=== PATIENT | female | born 1960 | race Caucasian/White ===

== ENCOUNTER → 2016-11-16 | Outpatient (CLI) | payer BC ==
[~2016-11-16] MED LIST: ALLERGY REL5 MG/5 ML PO; ASPIRIN E.C. 8181 MG PO; CRANBERRY FRUI425 MG PO; ESTRACE0.1 MG/GM VG; FIORICET 325 MG1 TA1 PO; FISH OIL SUPER1 SGL PO; IMITREX50 MG PO; MULTI VITAMINS1 TAB PO; NASONEX SPRAY17 GM NS; NORCO 325 MG-51 TAB PO; PHARMASSURE CHE30 MG PO
== END ==
LOC: MC.RAD 14:33
DX: Z12.31 Encounter for screening mammogram for malignant neoplasm of breast (principal)

== ENCOUNTER 2021-01-16 15:48 | Inpatient (IN) | payer BC ==
[~2021-01-16] VITALS: Ht 167.6 cm; Wt 56.4 kg
[2021-01-27] VITALS (12 sets, daily range): BP systolic 108–142; BP diastolic 64–81; PULSE 60–81; TEMP 97.7–98.7
[2021-01-27] MEDS ORDERED: CLARITIN 1010 MG/TAB PO (09:01)
[2021-01-27] MEDS ORDERED: FLONASEALLERGY NS (09:01)
--- NOTE | 2021-01-27 10:13 | NUR ---
Patient's pre-op PO celebrex is not given due to cross-allergy flagged to her bactrim drug allergy, to which her reaction is anaphylaxis.
[2021-01-27] MEDS ORDERED: CRANBERRY FRUI425 MG PO (15:26)
[2021-01-27] MEDS ORDERED: COMPLETE MULTI1 TAB PO (15:26)
[2021-01-27] MEDS ORDERED: OMEGA-3 1000 MG1 CAP PO (15:26)
[2021-01-27] MEDS ORDERED: GLUCOSAMIN 500 PO (15:27)
[2021-01-27] MEDS ORDERED: TUMERIC PO (15:27)
--- NOTE | 2021-01-27 19:22 | NUR ---
PT WAS GIVEN DILAUDID 0.25MG IVP FOR BACK PAIN. IVF TO LEFT FOREARM INFUSING WITHOUT REDNESS OR SWELLING.
--- NOTE | 2021-01-27 20:12 | NUR ---
Patient resting in bed. We attempted PO tyelnol & motrin for pain, but patient did not tolerate. She become quite nauseated. Zofran was given. Patient reports pain to her back like she is "having a baby". Dilaudid given after no relief with po medication. Kpad provided for comfort as well. She has had minimal PO intake. Ivf per orders. Patient was up to bedside commode & voided. She was unable to ambulate to the bathroom due to dizzyness & nausea. Patient provided with cool washcloth. Ice chips provided. Scds Ble. Bedside report to bob
--- NOTE | 2021-01-27 21:49 | NUR ---
PT IN BED, NEEDS TO USE THE BATHROOM. DILAUDID 0.25MG IVP FOR BACK AND ABD PAIN. ASSISTED TO BATHROOM, STEADY GAIT, VOIDS AND BACK TO BED. HAS NOT PASSED GAS. ABD WITH LAP SITES X4. REPORTS PERSISTENT NAUSEA. IS ALERT AND ORIENTED X4.
--- NOTE | 2021-01-27 22:45 | NUR ---
PT AMBULATES IN HALLWAY, GAIT SLOW AND STEADY. STILL HAVING LEFT BACK DISCOMFORT AND NAUSEA.
--- NOTE | 2021-01-27 23:06 | NUR ---
MEDICATED WITH PHENERGAN 12.5MG IVPB FOR NAUSEA.
[2021-01-28 03:24] VITALS: BP 116/57; PULSE 78; TEMP 98.7
--- NOTE | 2021-01-28 03:30 | NUR ---
PT AWAKE. REPORTS NAUSEA HAS SUBSIDED AND BACK PAIN IS GONE. REPORTS PAIN TO ABD. HAS KPAD ON. GIVEN SCHEDULED ES TYLENOL 1000MG AT THIS TIME. HAS TAKEN SALTINES WITHOUT PROBLEM, DIET INCREASED TO FULL LIQUID.
--- NOTE | 2021-01-28 06:36 | NUR ---
DIET INCREASED TO SOFT. PT FEELING BETTER, IVF CAPPED.
[2021-01-28 06:57] LABS: BASO % 0.2 % (0.0-2.0); GRAN # 8.3 (1.4-6.5); GRAN % 78.3 % (42.2-75.2); HEMOGLOBIN 11.7 g/dl (12.5-16.0); LYMPH # 1.3 (1.2-3.4); LYMPH % 12.7 % (20.0-51.0); MEAN CELL VOLUME 86 fl (80.0-100.0); MEAN CORPUSCULAR HEMOGLOBIN 30 pg (27.0-31.0); MEAN CORPUSCULAR HGB CONC 35 g/dl (33.0-37.0); MEAN PLATELET VOLUME 9.4 fl (7.4-10.4); MONO # 0.9 (0.1-0.6); MONO % 8.3 % (1.7-9.3); PLATELET COUNT 244 K/mm3 (130-400); RED BLOOD COUNT 3.96 M/mm3 (4.10-5.30); REDCELL DISTRIBUTION WIDTH-CV 12.2 % (11.5-14.5)
[2021-01-28 06:58] LABS: HEMATOCRIT 33.9 % (37.0-47.0)
[2021-01-28 07:01] LABS: CALCIUM 8.6 mg/dL (8.4-10.2); CREATININE, serum 0.77 (0.52-1.25); POTASSIUM 3.8 mmol/L (3.4-5.0)
[2021-01-28 07:45] VITALS: BP 128/72; PULSE 80; TEMP 98.1
--- NOTE | 2021-01-28 09:40 | NUR ---
Patient has been ambulating the halls independently. Steady on her feet. Independent in room. She tolerated breakfast without nausea. Abdomen flat & soft. Denies yet passing flatus or having BM. lap sites edges well approximated.
[2021-01-28 11:52] VITALS: BP 127/80; PULSE 94; TEMP 99
[2021-01-28] MEDS ORDERED: TYLENOL 500MG500 MG PO (12:13)
[2021-01-28] MEDS ORDERED: ROXICODONE 55 MG/TAB PO (12:14)
--- NOTE | 2021-01-28 13:42 | NUR ---
rounded. Discharge orders obtained. Patient anxiously awaiting discharge. Patient denies yet passing flatus or Bm, but still wanting to get home. Patient tolerated lunch, but did not like the food. We reviewed home med list. Tylenol given prior to discharge for pain. Patient going to stop at pharmacy to get tylenol on the way home. I reviewed diet restrictions & activity restrictions with patient. Patient ambulated out with all belongings. Her spouse taking her home.
--- NOTE | 2021-01-28 16:05 | NUR ---
Patient reports that he will DC home to [place]. Patient report that her PCP is in [place] and she uses [facility] for medications. Patient reports that she has transportation. Denies any concern with obtaining medications. Denies any DME. NF.
== END 2021-01-28 13:50 | disposition home or self-care (01) | DRG 331 ==
LOC: INPTSU 01-27 08:35 → SURG 01-27 10:30
PROVIDERS: ADMIT Surgery
PROC: 8E0W4CZ Robotic Assisted Procedure of Trunk Region, Percutaneous Endoscopic Approach (ICD-10-PCS; 2021-01-27)
PROC: 0DTH4ZZ Resection of Cecum, Percutaneous Endoscopic Approach (ICD-10-PCS; principal; 2021-01-27 10:30)
DX: C18.0 Malignant neoplasm of cecum (principal)
CPT/HCPCS: A4314; A9284; J0330; J0690; J1100; J1170; J1650; J1885; J2405; J2550; J2704; J3010; J7120

== ENCOUNTER 2022-01-05 09:17 | Day surgery (SDC) | payer BC ==
[~2022-01-05] VITALS: Ht 167.6 cm; Wt 53.5 kg
[~2022-01-05 09:17] MED LIST changes: +CLARITIN 1010 MG/TAB PO; +COMPLETE MULTI1 TAB PO; +FLONASEALLERGY NS; +GLUCOSAMIN 500 PO; +OMEGA-3 1000 MG1 CAP PO; +ROXICODONE 55 MG/TAB PO; +TUMERIC PO; +TYLENOL 500MG500 MG PO
[2022-01-05] MEDS ORDERED: OSCAL 500 TAB500 MG PO (11:02)
[2022-01-05] MEDS ORDERED: TURMERIC500 MG PO (11:02)
[2022-01-05] MEDS ORDERED: FIBERCON (11:03)
[2022-01-05 13:25] VITALS: BP 113/88; PULSE 84; TEMP 97.7
[2022-01-05 13:40] VITALS: BP 117/82; PULSE 81
[2022-01-05 13:55] VITALS: BP 121/83; PULSE 76
--- NOTE | 2022-01-05 14:04 | NUR ---
1325: Patient brought back into bay [facility] from endo procedure. Report received from Tati HEATH. Patient vitally stable on room air. Denies pain or nausea. Requesting muffin and water. Call light left within reach. 1335: MD in to see patient. brought into bay from waiting room. 1340: Patient tolerating food and drink well. Denies pain or nausea. Vital signs stable on room air. 1350: Patient meets discharge criteria. IV removed without complications. Went through discharge instructions with patient and . Questions answered. 1355: Patient got dressed and escorted to the patient entrance via wheelchair. Patient got into personal vehicle and left in the care of her .
[2022-01-05 14:22] VITALS: BP 132/83; PULSE 73; TEMP 99.1
== END 2022-01-05 14:00 | disposition home or self-care (01) ==
LOC: SDCO 09:17
DX: Z12.11 Encounter for screening for malignant neoplasm of colon (principal); D12.5 Benign neoplasm of sigmoid colon; K64.0 First degree hemorrhoids; Z85.038 Personal history of other malignant neoplasm of large intestine
CPT/HCPCS: J2704; J7030